=== PATIENT | male | born 1950 | race Caucasian/White ===

== ENCOUNTER → 2016-11-16 | Outpatient (REF) | payer MEDICARE | LOC: M LAB REF 11:20 | PROVIDERS: ATTEND Internal Medicine Medical Oncology | DX: D72.829 Elevated white blood cell count, unspecified (principal) ==

== ENCOUNTER → 2016-11-16 | Outpatient (REF) | payer MEDICARE ==
[2016-11-16 20:47] LABS: ERYTHROCYTE SEDIMENTATION RATE 10 mm/hr (0-20); REASON FOR REVIEW COMPREHENSIVE REVIEW
== END ==
LOC: M LAB REF 11:20
PROVIDERS: ATTEND Internal Medicine Medical Oncology
DX: D72.829 Elevated white blood cell count, unspecified (principal)